=== PATIENT | female | born 1980 | race Caucasian/White ===

== ENCOUNTER 2016-12-18 17:50 | Outpatient (CLI) | payer OTHER ==
--- NOTE | 2016-12-18 18:54 | DIAGNOSTIC IMAGING REPORT ---
PROCEDURE: CT ABD/PELVIS WITH CONTRAST CLINICAL INDICATION: Right lower quadrant pain and diarrhea x one and half weeks. Initial encounter. TECHNIQUE: 125 ml of Isovue 300 were injected intravenously and axial images were obtained of the entire abdomen and pelvis with sagittal and coronal reformations. COMPARISON: None. FINDINGS: ABDOMEN: Lung base are clear. Heart size is normal. A 1 cm left hepatic lobe cyst. There are two additional sub 5 mm hypoenhancing lesions, likely additional cysts or hemangiomas. The gallbladder, pancreas, spleen, adrenal glands and the left kidney are normal. Small right renal cyst. Normal abdominal aorta. There is thickening of the ascending colon to the splenic flexure and to a lesser extent the remainder of the colon. PELVIS: Normal appendix. Hysterectomy. 1.7 cm involuting right ovarian cyst. Small amount of free fluid the pelvis. Bones are unremarkable. IMPRESSION: 1. Wall thickening of the ascending colon to the splenic flexure and to lesser extent the remainder of the colon, suspicious for colitis 2. 1.7 cm involuting right ovarian cyst with small amount of free fluid the pelvis 3. Hysterectomy 4. Normal appendix 5. Results discussed with Dr. Sylvester All CT scans at this facility use dose modulation, iterative reconstruction, and/or weight-based dosing when appropriate to reduce radiation dose to as low as reasonably achievable.
== END 2016-12-18 23:00 ==
LOC: CT SRH 17:50
DX: R93.3 Abnormal findings on diagnostic imaging of other parts of digestive tract (principal); R10.31 Right lower quadrant pain; R10.9 Unspecified abdominal pain; R19.7 Diarrhea, unspecified
CPT/HCPCS: 90074; 90100; 95059

== ENCOUNTER 2017-04-25 12:05 | Emergency (ER) | payer OTHER ==
--- NOTE | 2017-04-25 14:05 | ED CLINICAL REPORT ---
Clinical Report - Physicians/Mid Levels [facility] [address] [place] [address] 04/25/2017 12:06 Patient: ELMA KRAUS Time Seen: 13:32; initial patient contact. Arrived- By private vehicle. Historian- patient. HISTORY OF PRESENT ILLNESS Chief Complaint: BACK PAIN. Onset was last night and it is still present. It is described as being moderate in degree and in the area of the left SI joint and right SI joint. The quality is noted to be sharp and aching. No radiation. Patient denies injury to the head or neck. Similar symptoms previously: Several times. Recent medical care: Not recently seen/assessed. REVIEW OF SYSTEMS No difficulty with urination. She has had numbness. All systems otherwise negative, except as recorded above. PAST HISTORY Tremor. Patent foramen ovale. Migraine Headache. Hidradenitis Suppurativa. Cancer. Bipolar Disorder. Acne. IBS. ADDITIONAL SURGERIES: Breast reduction. Hysterectomy. SOCIAL HISTORY Former smoker. No alcohol use or drug use. ADDITIONAL NOTES The nursing notes have been reviewed. PHYSICAL EXAM Vital Signs: 04/25/2017 13:30 BP: 119/74. HR: 66. RR: 18. O2 saturation: 96%. Temp: 98.2 F. Pain level now: 7/10. Have been reviewed as normal. Appearance: Alert. Appears to be in pain. Back: Normal inspection. No painless ROM. No muscle spasm in the back. (Moderate TTP over both SI joints, R>L). Neuro: Oriented X 3. Mood/affect normal. No motor deficit. No sensory deficit. PROGRESS AND PROCEDURES Disposition: Discharged home in good and improved condition. Condition: good. CLINICAL IMPRESSION Acute right sided and left sided sacroiliitis. INSTRUCTIONS Apply ice for 20 minutes four times a day until better. Don't apply ice directly to skin. Prescription Medications: Diclofenac 50 mg tablets: take 1 tablet orally every 8 hours as needed for pain or stiffness. Dispense thirty (30). No refill. Hydrocodone/APAP 5mg / 325mg: take 1-2 orally every 6 hours as needed for pain. Dispense fifteen (15). No refill. Follow-up: Follow up with your doctor Discuss physical therapy in about two days. Call for an appointment. Screening today revealed the patient's blood pressure to be in the pre-hypertensive range. The patient should follow up with a primary care provider for blood pressure management. (Electronically signed by Missael Schulte Dr. 04/25/2017 22:19)
--- NOTE | 2017-04-25 14:05 | ED CLINICAL REPORT ---
Clinical Report - Physicians/Mid Levels [facility] [address] [place] [address] 04/25/2017 12:06 Patient: ELMA KRAUS Time Seen: 13:32; initial patient contact. Arrived- By private vehicle. Historian- patient. HISTORY OF PRESENT ILLNESS Chief Complaint: BACK PAIN. Onset was last night and it is still present. It is described as being moderate in degree and in the area of the left SI joint and right SI joint. The quality is noted to be sharp and aching. No radiation. Patient denies injury to the head or neck. Similar symptoms previously: Several times. Recent medical care: Not recently seen/assessed. REVIEW OF SYSTEMS No difficulty with urination. She has had numbness. All systems otherwise negative, except as recorded above. PAST HISTORY Tremor. Patent foramen ovale. Migraine Headache. Hidradenitis Suppurativa. Cancer. Bipolar Disorder. Acne. IBS. ADDITIONAL SURGERIES: Breast reduction. Hysterectomy. SOCIAL HISTORY Former smoker. No alcohol use or drug use. ADDITIONAL NOTES The nursing notes have been reviewed. PHYSICAL EXAM Vital Signs: 04/25/2017 13:30 BP: 119/74. HR: 66. RR: 18. O2 saturation: 96%. Temp: 98.2 F. Pain level now: 7/10. Have been reviewed as normal. Appearance: Alert. Appears to be in pain. Back: Normal inspection. No painless ROM. No muscle spasm in the back. (Moderate TTP over both SI joints, R>L). Neuro: Oriented X 3. Mood/affect normal. No motor deficit. No sensory deficit. PROGRESS AND PROCEDURES Disposition: Discharged home in good and improved condition. Condition: good. CLINICAL IMPRESSION Acute right sided and left sided sacroiliitis. INSTRUCTIONS Apply ice for 20 minutes four times a day until better. Don't apply ice directly to skin. Prescription Medications: Diclofenac 50 mg tablets: take 1 tablet orally every 8 hours as needed for pain or stiffness. Dispense thirty (30). No refill. Hydrocodone/APAP 5mg / 325mg: take 1-2 orally every 6 hours as needed for pain. Dispense fifteen (15). No refill. Follow-up: Follow up with your doctor Discuss physical therapy in about two days. Call for an appointment. Screening today revealed the patient's blood pressure to be in the pre-hypertensive range. The patient should follow up with a primary care provider for blood pressure management. (Electronically signed by Missael Schulte Dr. 04/25/2017 22:19)
--- NOTE | 2017-04-25 14:05 | ED ORDER SUMMARY ---
..... Patient: ELMA KRAUS OrderSheet [facility] VisitID: [id number] [address] [place] [address] 36y, F Registration Date/Time: 04/25/2017 ORDER SHEET Weight: 66.2 kg (stated) Allergies: Penicillins GENERAL ORDERS: MEDICATION ORDERS: Toradol IM 60 mg (NOW) (14:03 04/25/2017 Joanna Tenorio) (14:46 Selvin SahniNAnastasia) IV FLUIDS: ORDER SHEET NOTES: [Electronically signed by David Bird R.N. (16:26 04/25/2017)] [Electronically signed by Missael Schulte Dr. (22:19 04/25/2017)] [Electronically locked/signed by David Bird R.N. (16:26 04/25/2017)]
--- NOTE | 2017-04-25 14:05 | ED ORDER SUMMARY ---
..... Patient: ELMA KRAUS OrderSheet [facility] VisitID: [id number] [address] [place] [address] 36y, F Registration Date/Time: 04/25/2017 ORDER SHEET Weight: 66.2 kg (stated) Allergies: Penicillins GENERAL ORDERS: MEDICATION ORDERS: Toradol IM 60 mg (NOW) (14:03 04/25/2017 Joanna Tenorio) (14:46 Selvin SahniNAnastasia) IV FLUIDS: ORDER SHEET NOTES: [Electronically signed by David Bird R.N. (16:26 04/25/2017)] [Electronically signed by Missael Schulte Dr. (22:19 04/25/2017)] [Electronically locked/signed by David Bird R.N. (16:26 04/25/2017)]
--- NOTE | 2017-04-25 14:05 | ED NURSING NOTES ---
Clinical Report - Nurses [place] [address] [place] [address] 04/25/2017 12:06 [id number] Triage time 13:30. Acuity: LEVEL 3. Chief Complaint: BACK PAIN and (worse on right). Alert. SPENCER COMA SCORE: [place] Coma Scale: 15- eyes open spontaneously (4); best verbal response- oriented x 4 (5); best motor response- obeys commands (6). --13:38 Annette Hill R.N. 13:30 04/25/17. BP: 119/74. HR: 66. RR: 18. O2 saturation: 96% on room air. Temp: 98.2 F (oral). Pain level now: 05/11. --13:38 Annette Hill R.N. Weight: 66.2 kg stated. Height/Length: 65 inches Per Patient. BMI: 24.3. --13:34 Annette Hill R.N. Medications Triamcinolone Acetonide External (Ointment 0.05 %), 2x a day as needed. --13:43 Annette Hill R.N. Amitriptyline HCl Oral (Tablet 25 mg), at bedtime. --13:44 Annette Hill R.N. Zofran ODT Oral (Tablet Dispersible 8 mg), as needed. --13:45 Annette Hill R.N. Propranolol HCl Oral 80 mg, 2x a day. --13:46 Annette Hill R.N. Omeprazole Oral 40 mg, 2x a day. --13:47 Annette Hill R.N. Citalopram Hydrobromide Oral (Tablet 40 mg) 1 tablet, daily. --13:47 Annette Hill R.N. LORazepam Oral (Tablet 1 mg) 1 tablet, , 30 min prior to flying. --13:48 Annette Hill R.N. Simethicone Oral 125 mg, qid. --13:49 Annette Hill R.N. Riboflavin Oral (Tablet 400 mg) 1 tablet, daily. --13:49 Annette Hill R.N. Dicyclomine HCl Oral 10 mg, 4x a day. --13:50 Annette Hill R.N. Garcinia Cambogia-Chromium Oral, bid. --13:51 Annette Hill R.N. Vitamin c Oral, daily as needed, illness exposure. --13:51 Annette Hill R.N. Gas-X Oral, 4x a day as needed. --13:54 Annette Hill R.N. Maxalt Oral (Tablet 10 mg), as needed. --13:54 Annette Hill R.N. Spironolactone Oral (Tablet 100 mg) 2 tablets, daily. --13:55 Annette Hill R.N. LaMICtal Oral (Tablet 150 mg) 1 tablet, bid. --13:56 Annette Hill R.N. Rathbun Carbonate ER Oral (Tablet Extended Release 300 mg) 2 tablets, bid. --13:56 Annette Hill R.N. Allergies Penicillins. --13:34 Annette Hill R.N. History Arrived by private vehicle. Historian: patient. Accompanied by family. Primary physician (Nga). Onset. (about 1 week). Describes the quality as a sharp pain and ( constant). Relates the location as in the left and right hip region and lower lumbar region. ( saw on for Migraine, got Toradol and Phenergan, Thursday had vomiting). No history of recent trauma. PAST MEDICAL HX: The patient has had a hysterectomy. SOCIAL HX: Former smoker. No alcohol use or drug use. FALL RISK ASSESSMENT: Fall risk assessment completed. No fall risk identified. FUNCTIONAL ASSESSMENT: Functional assessment: no impairments noted. LEARNING NEEDS ASSESSMENT: The learning needs assessment revealed no barriers. --13:38 Annette Hill R.N. PROBLEMS: Tremor. Patent foramen ovale. Migraine Headache. Hidradenitis Suppurativa. Cancer. Bipolar Disorder. Acne. IBS. --13:59 Annette Hill R.N. ADDITIONAL SURGERIES: Breast reduction. Hysterectomy. --13:34 Annette Hill R.N. Assessment GENERAL / NEURO / PSYCH: The patient is awake and alert, appears uncomfortable and is oriented and cooperative. She appears uncomfortable and has poor eye contact. RESPIRATORY: Respirations not labored. SKIN: Skin is warm and dry. --13:38 Annette Hill R.N. Interventions ID and allergy band on patient. To treatment room. --13:38 Annette Hill R.N. PHYSICAL ASSESSMENT 14:00 04/25/17. To room via wheelchair. Patient gowned. GENERAL / NEURO / PSYCH: The patient is awake and alert, appears uncomfortable and is oriented and cooperative. She appears uncomfortable and has poor eye contact. RESPIRATORY: Respirations not labored. --14:00 Annette Hill R.N. NURSING PROGRESS NOTES 14:00 04/25/17. Reassurance given. Call light placed in reach. Side rails up x 1. Bed placed in lowest position. Brakes of bed on. --14:00 Annette Hill R.N. 14:46 04/25/2017 Toradol (Ketorolac Tromethamine) IM 60 mg given. Given in the right ventral gluteus. Allergies verified and confirmed 5 rights. --14:46 David Bird R.N. DISPOSITION / DISCHARGE Departure time: 14:47 Apr 25 2017. Condition at departure: improved. No learning barriers present. Discharge instructions provided and reviewed with the patient. Reviewed warnings. Reviewed medication(s). Treatments reviewed. Reviewed referrals. Patient verbalized understanding. Written instructions provided in Turkmen. The patient was discharged home and accompanied by spouse. She left the Emergency Department in a wheelchair and via private vehicle. Spouse driving. --14:47 David Bird R.N. 14:46 04/25/17. BP: 111/81. HR: 61. RR: 18. O2 saturation: 100%. Temp: 98.4 F. --14:47 David Bird R.N. 14:49 04/25/17. Pain level now 6/10. --14:49 Pelon, David, R.N. Locked/Released at 04/25/2017 16:26 by David Bird R.N.
--- NOTE | 2017-04-25 22:19 | ED MAR SUMMARY ---
..... Medication Administration Record [facility] [address] [place] [address] Patient: ELMA KRAUS Visit ID: [id number] 36y, F Weight: 66.2 kg Height/Length: 65 in BMI: 24.3 ALLERGIES: Penicillins Given 14:46 04/25/2017 David Bird RAna Maria Medication Administered: TORADOL [IM] (KETOROLAC TROMETHAMINE), Dose: 60 mg IM. Medication Ordered: Toradol IM 60 mg (NOW).
--- NOTE | 2017-04-25 22:19 | ED DISCHARGE INSTRUCTIONS ---
Patient: ELMA KRAUS General Instructions [facility] VisitID: [id number] [place] [address] 36y, F Registration Date/Time: 04/25/2017 Acute right sided and left sided sacroiliitis. INSTRUCTIONS Apply ice for 20 minutes four times a day until better. Don't apply ice directly to skin. Prescription Medications: Diclofenac 50 mg tablets: take 1 tablet orally every 8 hours as needed for pain or stiffness. Dispense thirty (30). No refill. Hydrocodone/APAP 5mg / 325mg: take 1-2 orally every 6 hours as needed for pain. Dispense fifteen (15). No refill. Follow-up: Follow up with your doctor Discuss physical therapy in about two days. Call for an appointment. Screening today revealed the patient's blood pressure to be in the pre-hypertensive range. The patient should follow up with a primary care provider for blood pressure management. ADDITIONAL INFORMATION Sacroiliitis The sacrum is the triangular bone at the base of the spine. Sacroiliac joints (also known as S-I joints) connect the sacrum to the other pelvis bones. Sometimes one or both S-I joints become injured or inflamed. When this occurs, small movements of the lower back and pelvis may be very painful. This condition is called sacroiliitis ([id number]). It may occur along with other diseases such as rheumatoid arthritis, psoriasis, Crohns disease or colitis. Common symptoms include pain or stiffness in the hips, lower back, thighs or buttocks. Pain occurs most often in the morning or after sitting for long periods of time. The pain may worsen when walking. The swinging motion of the hips strains the S-I joints. Sacroiliitis is caused by many factors such as: Heavy lifting (especially if done incorrectly) Traumatic injury (a fall or vehicle accident) Degenerative arthritis Infection of the joint This condition is difficult to diagnose. Injecting a numbing medicine into the S-I joint is one way to confirm the diagnosis. It may be confused with other causes of low back pain. Treatment consists of rest, physical therapy and anti-inflammatory medicines. If there is another medical condition causing the sacroiliitis, that needs to be treated also. Further testing may be needed if symptoms dont improve with current treatment. Home Care: If your doctor has prescribed medications, take all of them as directed. You may use acetaminophen (Tylenol), ibuprofen (Advil, Motrin) to control pain, unless another medicine was prescribed. If prednisone was prescribed, do not take ibuprofen-type medicines. [NOTE: If you have chronic liver or kidney disease or ever had a stomach ulcer or GI bleeding, talk with your doctor before using this medication.] If you were referred to physical therapy, arrange the appointment as directed. Follow through with any prescribed exercises. Dont smoke. Smoking decreases blood flow to the inflamed area. This makes it harder to treat. Follow Up with your doctor or as advised by our staff. [NOTE: If you had an x-ray, MRI (magnetic resonance imaging) scan, they will be reviewed by a specialist. You will be notified of any new findings that may affect your care.] Return Promptly or contact your doctor if any of the following occur: Increasing low back pain Weakness, numbness in one or both legs Loss of bowel or bladder control Numbness in the groin area Inflammation of the eyes Skin rash or redness Hydrocodone Bitartrate, Acetaminophen Oral tablet What is this medicine? ACETAMINOPHEN; HYDROCODONE (a set a DARIA cruz fen; preethi droe KOE done) is a pain reliever. It is used to treat mild to moderate pain. How should I use this medicine? Take this medicine by mouth. Swallow it with a full glass of water. Follow the directions on the prescription label. If the medicine upsets your stomach, take the medicine with food or milk. Do not take more than you are told to take. Talk to your improvement lead regarding the use of this medicine in children. This medicine is not approved for use in children. What side effects may I notice from receiving this medicine? Side effects that you should report to your doctor or health child care center administrator as soon as possible: allergic reactions like skin rash, itching or hives, swelling of the face, lips, or tongue breathing problems confusion feeling faint or lightheaded, falls stomach pain yellowing of the eyes or skin Side effects that usually do not require medical attention (report to your doctor or health child care center administrator if they continue or are bothersome): nausea, vomiting stomach upset What may interact with this medicine? alcohol antihistamines isoniazid medicines for depression, anxiety, or psychotic disturbances medicines for sleep muscle relaxants naltrexone narcotic medicines (opiates) for pain phenobarbital ritonavir tramadol What if I miss a dose? If you miss a dose, take it as soon as you can. If it is almost time for your next dose, take only that dose. Do not take double or extra doses. Where should I keep my medicine? Keep out of the reach of children. This medicine can be abused. Keep your medicine in a safe place to protect it from theft. Do not share this medicine with anyone. Selling or giving away this medicine is dangerous and against the law. Store at room temperature between 15 and 30 degrees C (59 and 86 degrees F). Protect from light. Keep container tightly closed. Throw away any unused medicine after the expiration date. Discard unused medicine and used packaging carefully. Pets and children can be harmed if they find used or lost packages. What should I tell my health care provider before I take this medicine? They need to know if you have any of these conditions: brain tumor Crohn's disease, inflammatory bowel disease, or ulcerative colitis drink more than 3 alcohol-containing drinks per day drug abuse or addiction head injury heart or circulation problems kidney disease or problems going to the bathroom liver disease lung disease, asthma, or breathing problems an unusual or allergic reaction to acetaminophen, hydrocodone, other opioid analgesics, other medicines, foods, dyes, or preservatives or trying to get breast-feeding What should I watch for while using this medicine? Tell your doctor or health child care center administrator if your pain does not go away, if it gets worse, or if you have new or a different type of pain. You may develop tolerance to the medicine. Tolerance means that you will need a higher dose of the medicine for pain relief. Tolerance is normal and is expected if you take the medicine for a long time. Do not suddenly stop taking your medicine because you may develop a severe reaction. Your body becomes used to the medicine. This does NOT mean you are addicted. Addiction is a behavior related to getting and using a drug for a non-medical reason. If you have pain, you have a medical reason to take pain medicine. Your doctor will tell you how much medicine to take. If your doctor wants you to stop the medicine, the dose will be slowly lowered over time to avoid any side effects. You may get drowsy or dizzy when you first start taking the medicine or change doses. Do not drive, use machinery, or do anything that may be dangerous until you know how the medicine affects you. Stand or sit up slowly. There are different types of narcotic medicines (opiates) for pain. If you take more than one type at the same time, you may have more side effects. Give your health care provider a list of all medicines you use. Your doctor will tell you how much medicine to take. Do not take more medicine than directed. Call emergency for help if you have problems breathing. The medicine will cause constipation. Try to have a bowel movement at least every 2 to 3 days. If you do not have a bowel movement for 3 days, call your doctor or health child care center administrator. Too much acetaminophen can be very dangerous. Do not take Tylenol (acetaminophen) or medicines that contain acetaminophen with this medicine. Many non-prescription medicines contain acetaminophen. Always read the labels carefully. You have been given the following additional information: Sacroiliitis Hydrocodone Bitartrate, Acetaminophen Oral tablet (Electronically signed by Missael Schulte Dr. 04/25/2017 22:19)
--- NOTE | 2017-04-25 22:19 | ED DISCHARGE INSTRUCTIONS ---
Patient: ELMA KRAUS General Instructions [facility] VisitID: [id number] [place] [address] 36y, F Registration Date/Time: 04/25/2017 Acute right sided and left sided sacroiliitis. INSTRUCTIONS Apply ice for 20 minutes four times a day until better. Don't apply ice directly to skin. Prescription Medications: Diclofenac 50 mg tablets: take 1 tablet orally every 8 hours as needed for pain or stiffness. Dispense thirty (30). No refill. Hydrocodone/APAP 5mg / 325mg: take 1-2 orally every 6 hours as needed for pain. Dispense fifteen (15). No refill. Follow-up: Follow up with your doctor Discuss physical therapy in about two days. Call for an appointment. Screening today revealed the patient's blood pressure to be in the pre-hypertensive range. The patient should follow up with a primary care provider for blood pressure management. ADDITIONAL INFORMATION Sacroiliitis The sacrum is the triangular bone at the base of the spine. Sacroiliac joints (also known as S-I joints) connect the sacrum to the other pelvis bones. Sometimes one or both S-I joints become injured or inflamed. When this occurs, small movements of the lower back and pelvis may be very painful. This condition is called sacroiliitis ([id number]). It may occur along with other diseases such as rheumatoid arthritis, psoriasis, Crohns disease or colitis. Common symptoms include pain or stiffness in the hips, lower back, thighs or buttocks. Pain occurs most often in the morning or after sitting for long periods of time. The pain may worsen when walking. The swinging motion of the hips strains the S-I joints. Sacroiliitis is caused by many factors such as: Heavy lifting (especially if done incorrectly) Traumatic injury (a fall or vehicle accident) Degenerative arthritis Infection of the joint This condition is difficult to diagnose. Injecting a numbing medicine into the S-I joint is one way to confirm the diagnosis. It may be confused with other causes of low back pain. Treatment consists of rest, physical therapy and anti-inflammatory medicines. If there is another medical condition causing the sacroiliitis, that needs to be treated also. Further testing may be needed if symptoms dont improve with current treatment. Home Care: If your doctor has prescribed medications, take all of them as directed. You may use acetaminophen (Tylenol), ibuprofen (Advil, Motrin) to control pain, unless another medicine was prescribed. If prednisone was prescribed, do not take ibuprofen-type medicines. [NOTE: If you have chronic liver or kidney disease or ever had a stomach ulcer or GI bleeding, talk with your doctor before using this medication.] If you were referred to physical therapy, arrange the appointment as directed. Follow through with any prescribed exercises. Dont smoke. Smoking decreases blood flow to the inflamed area. This makes it harder to treat. Follow Up with your doctor or as advised by our staff. [NOTE: If you had an x-ray, MRI (magnetic resonance imaging) scan, they will be reviewed by a specialist. You will be notified of any new findings that may affect your care.] Return Promptly or contact your doctor if any of the following occur: Increasing low back pain Weakness, numbness in one or both legs Loss of bowel or bladder control Numbness in the groin area Inflammation of the eyes Skin rash or redness Hydrocodone Bitartrate, Acetaminophen Oral tablet What is this medicine? ACETAMINOPHEN; HYDROCODONE (a set a DARIA cruz fen; preethi droe KOE done) is a pain reliever. It is used to treat mild to moderate pain. How should I use this medicine? Take this medicine by mouth. Swallow it with a full glass of water. Follow the directions on the prescription label. If the medicine upsets your stomach, take the medicine with food or milk. Do not take more than you are told to take. Talk to your tapper operator regarding the use of this medicine in children. This medicine is not approved for use in children. What side effects may I notice from receiving this medicine? Side effects that you should report to your doctor or health animal care supervisor as soon as possible: allergic reactions like skin rash, itching or hives, swelling of the face, lips, or tongue breathing problems confusion feeling faint or lightheaded, falls stomach pain yellowing of the eyes or skin Side effects that usually do not require medical attention (report to your doctor or health animal care supervisor if they continue or are bothersome): nausea, vomiting stomach upset What may interact with this medicine? alcohol antihistamines isoniazid medicines for depression, anxiety, or psychotic disturbances medicines for sleep muscle relaxants naltrexone narcotic medicines (opiates) for pain phenobarbital ritonavir tramadol What if I miss a dose? If you miss a dose, take it as soon as you can. If it is almost time for your next dose, take only that dose. Do not take double or extra doses. Where should I keep my medicine? Keep out of the reach of children. This medicine can be abused. Keep your medicine in a safe place to protect it from theft. Do not share this medicine with anyone. Selling or giving away this medicine is dangerous and against the law. Store at room temperature between 15 and 30 degrees C (59 and 86 degrees F). Protect from light. Keep container tightly closed. Throw away any unused medicine after the expiration date. Discard unused medicine and used packaging carefully. Pets and children can be harmed if they find used or lost packages. What should I tell my health care provider before I take this medicine? They need to know if you have any of these conditions: brain tumor Crohn's disease, inflammatory bowel disease, or ulcerative colitis drink more than 3 alcohol-containing drinks per day drug abuse or addiction head injury heart or circulation problems kidney disease or problems going to the bathroom liver disease lung disease, asthma, or breathing problems an unusual or allergic reaction to acetaminophen, hydrocodone, other opioid analgesics, other medicines, foods, dyes, or preservatives or trying to get breast-feeding What should I watch for while using this medicine? Tell your doctor or health animal care supervisor if your pain does not go away, if it gets worse, or if you have new or a different type of pain. You may develop tolerance to the medicine. Tolerance means that you will need a higher dose of the medicine for pain relief. Tolerance is normal and is expected if you take the medicine for a long time. Do not suddenly stop taking your medicine because you may develop a severe reaction. Your body becomes used to the medicine. This does NOT mean you are addicted. Addiction is a behavior related to getting and using a drug for a non-medical reason. If you have pain, you have a medical reason to take pain medicine. Your doctor will tell you how much medicine to take. If your doctor wants you to stop the medicine, the dose will be slowly lowered over time to avoid any side effects. You may get drowsy or dizzy when you first start taking the medicine or change doses. Do not drive, use machinery, or do anything that may be dangerous until you know how the medicine affects you. Stand or sit up slowly. There are different types of narcotic medicines (opiates) for pain. If you take more than one type at the same time, you may have more side effects. Give your health care provider a list of all medicines you use. Your doctor will tell you how much medicine to take. Do not take more medicine than directed. Call emergency for help if you have problems breathing. The medicine will cause constipation. Try to have a bowel movement at least every 2 to 3 days. If you do not have a bowel movement for 3 days, call your doctor or health animal care supervisor. Too much acetaminophen can be very dangerous. Do not take Tylenol (acetaminophen) or medicines that contain acetaminophen with this medicine. Many non-prescription medicines contain acetaminophen. Always read the labels carefully. You have been given the following additional information: Sacroiliitis Hydrocodone Bitartrate, Acetaminophen Oral tablet (Electronically signed by Missael Schulte Dr. 04/25/2017 22:19)
--- NOTE | 2017-04-25 22:19 | ED MAR SUMMARY ---
..... Medication Administration Record [facility] [address] [place] [address] Patient: ELMA KRAUS Visit ID: [id number] 36y, F Weight: 66.2 kg Height/Length: 65 in BMI: 24.3 ALLERGIES: Penicillins Given 14:46 04/25/2017 David Bird RAna Maria Medication Administered: TORADOL [IM] (KETOROLAC TROMETHAMINE), Dose: 60 mg IM. Medication Ordered: Toradol IM 60 mg (NOW).
--- NOTE | 2017-04-25 22:20 | ED MED RECONCILIATION SUMMARY ---
Patient: ELMA KRAUS Medication Reconciliation Report [facility] VisitID: [id number] [address] [place] [address] 36y, F Registration Date/Time: 04/25/2017 Weight: 66.2 kg Height/Length: 65 in. BMI: 24.3 ALLERGIES: Penicillins The patient's Home Medications are listed below: THE FOLLOWING MEDICATIONS NEED TO BE RECONCILED: Amitriptyline HCl Oral (25 mg), at bedtime Citalopram Hydrobromide Oral (40 mg) 1 tablet, daily Dicyclomine HCl Oral 10 mg, 4x a day Garcinia Cambogia-Chromium Oral, bid Gas-X Oral, 4x a day LaMICtal Oral (150 mg) 1 tablet, bid [place] Carbonate ER Oral (300 mg) 2 tablets, bid LORazepam Oral (1 mg) 1 tablet, 30 min prior to flying Maxalt Oral (10 mg) Omeprazole Oral 40 mg, 2x a day Propranolol HCl Oral 80 mg, 2x a day Riboflavin Oral (400 mg) 1 tablet, daily Simethicone Oral 125 mg, qid Spironolactone Oral (100 mg) 2 tablets, daily Triamcinolone Acetonide External (0.05 %), 2x a day Vitamin c Oral, daily, illness exposure Zofran ODT Oral (8 mg) The source(s) of the original Home Medication information: Not obtained. The following Medications were given to the patient in the Emergency Department: Toradol [IM] IM 60 mg, administered: 04/25/2017 2:46:00 PM The following Medications were prescribed to the patient: Diclofenac 50 mg tablets: take 1 tablet orally every 8 hours as needed for pain or stiffness. Dispense thirty (30). No refill. -- Missael Schulte Dr. Hydrocodone/APAP 5mg / 325mg: take 1-2 orally every 6 hours as needed for pain. Dispense fifteen (15). No refill. -- Missael Schulte Dr.
--- NOTE | 2017-04-25 22:20 | ED MED RECONCILIATION SUMMARY ---
Patient: ELMA KRAUS Medication Reconciliation Report [facility] VisitID: [id number] [address] [place] [address] 36y, F Registration Date/Time: 04/25/2017 Weight: 66.2 kg Height/Length: 65 in. BMI: 24.3 ALLERGIES: Penicillins The patient's Home Medications are listed below: THE FOLLOWING MEDICATIONS NEED TO BE RECONCILED: Amitriptyline HCl Oral (25 mg), at bedtime Citalopram Hydrobromide Oral (40 mg) 1 tablet, daily Dicyclomine HCl Oral 10 mg, 4x a day Garcinia Cambogia-Chromium Oral, bid Gas-X Oral, 4x a day LaMICtal Oral (150 mg) 1 tablet, bid [place] Carbonate ER Oral (300 mg) 2 tablets, bid LORazepam Oral (1 mg) 1 tablet, 30 min prior to flying Maxalt Oral (10 mg) Omeprazole Oral 40 mg, 2x a day Propranolol HCl Oral 80 mg, 2x a day Riboflavin Oral (400 mg) 1 tablet, daily Simethicone Oral 125 mg, qid Spironolactone Oral (100 mg) 2 tablets, daily Triamcinolone Acetonide External (0.05 %), 2x a day Vitamin c Oral, daily, illness exposure Zofran ODT Oral (8 mg) The source(s) of the original Home Medication information: Not obtained. The following Medications were given to the patient in the Emergency Department: Toradol [IM] IM 60 mg, administered: 04/25/2017 2:46:00 PM The following Medications were prescribed to the patient: Diclofenac 50 mg tablets: take 1 tablet orally every 8 hours as needed for pain or stiffness. Dispense thirty (30). No refill. -- Missael Schulte Dr. Hydrocodone/APAP 5mg / 325mg: take 1-2 orally every 6 hours as needed for pain. Dispense fifteen (15). No refill. -- Missael Schulte Dr.
== END 2017-04-25 14:50 | disposition home or self-care (01) ==
LOC: ED SRH 12:05
DX: M54.9 Dorsalgia, unspecified (principal); M46.1 Sacroiliitis, not elsewhere classified; Z79.899 Other long term (current) drug therapy; Z88.0 Allergy status to penicillin